=== PATIENT | female | born 1960 | race Caucasian/White ===

== ENCOUNTER 2017-06-13 08:58 | Inpatient (IN) | payer MEDICAID ==
[~2017-06-13] VITALS: Ht 160 cm; Wt 47.2 kg
[2017-06-13 09:30] LABS: BASOPHIL % 0.3 % (0-2); PLATELET COUNT 274 x10^3mcL (130-400); RED CELL DISTRIBUTION WIDTH 13.2 % (11.5-14.5)
[2017-06-13 09:41] LABS: CALCIUM 9.2 mg/dL (8.5-10.1); CARBON DIOXIDE 34.4 mmol/L (21-32); CHLORIDE SERUM 100 mmol/L (98-107); CREATININE SERUM 0.8 mg/dL (0.6-1.0); GFR1 > 60 mL/min; GLUCOSE SERUM 97 mg/dL (74-106); POTASSIUM SERUM 3.3 mmol/L (3.5-5.1); SODIUM SERUM 139 mmol/L (136-145)
[2017-06-13 09:47] LABS: ALBUMIN 3.4 g/dL (3.4-5.0); ALKALINE PHOSPHATASE 97 U/L (46-116); ALT/SGPT 19 U/L (14-59); AST/SGOT 21 U/L (15-37); BILIRUBIN TOTAL 0.27 mg/dL (0.20-1.00); LIPASE 165 IU/L (73-393); TOTAL PROTEIN, SERUM 7.4 g/dL (6.4-8.2)
[2017-06-13 11:06] LABS: T3 TOTAL 1.12 ng/mL
[2017-06-13 11:19] LABS: MAGNESIUM 1.8 mg/dL (1.8-2.4); PHOSPHOROUS 3.6 mg/dL (2.5-4.9)
[2017-06-13 11:23] LABS: CHOLESTEROL/HDL RATIO 2.6
[2017-06-13 11:29] VITALS: BP 125/87
[2017-06-13 11:29] LABS: FREE T4 1.36 ng/dL (0.76-1.46); FREE THYROXINE INDEX 4.5 ug/dL (1.4-4.5); T4(THYROXINE) 13.3 ug/dL (4.7-13.3)
[2017-06-13 14:45] VITALS: BP 124/77
[2017-06-13 14:54] VITALS: BP 128/87
[2017-06-13 18:14] VITALS: BP 125/70
[2017-06-13 21:31] VITALS: BP 142/78
[2017-06-14 06:56] LABS: BASOPHIL % 0.6 % (0-2); PLATELET COUNT 245 x10^3mcL (130-400); RED CELL DISTRIBUTION WIDTH 13.3 % (11.5-14.5)
[2017-06-14 06:57] LABS: CALCIUM 8.4 mg/dL (8.5-10.1); CARBON DIOXIDE 31.7 mmol/L (21-32); CHLORIDE SERUM 103 mmol/L (98-107); CREATININE SERUM 0.8 mg/dL (0.6-1.0); GFR1 > 60 mL/min; GLUCOSE SERUM 72 mg/dL (74-106); PHOSPHOROUS 3.4 mg/dL (2.5-4.9); POTASSIUM SERUM 3.2 mmol/L (3.5-5.1); SODIUM SERUM 140 mmol/L (136-145)
[2017-06-14 07:01] VITALS: BP 124/68
[2017-06-14 11:42] VITALS: Ht 160 cm; Wt 47.2 kg
[2017-06-14 14:30] VITALS: BP 101/62
[2017-06-14 18:01] VITALS: BP 94/54
[2017-06-14 20:52] VITALS: BP 95/56
[2017-06-15 01:37] LABS: microscopic required? YES; urine erythrocyte NEGATIVE (NEGATIVE)
[2017-06-15 01:53] LABS: AMPHETAMINE QUAL UR POSITIVE (NEG <=1000)
[2017-06-15 05:47] VITALS: BP 145/88
[2017-06-15 06:40] LABS: PLATELET COUNT 265 x10^3mcL (130-400); RED CELL DISTRIBUTION WIDTH 13.2 % (11.5-14.5)
[2017-06-15 06:58] LABS: BASOPHIL % 0 % (0-2); CALCIUM 8.4 mg/dL (8.5-10.1); CARBON DIOXIDE 32.8 mmol/L (21-32); CHLORIDE SERUM 103 mmol/L (98-107); CREATININE SERUM 0.8 mg/dL (0.6-1.0); GFR1 > 60 mL/min; GLUCOSE SERUM 134 mg/dL (74-106); POTASSIUM SERUM 3.8 mmol/L (3.5-5.1); SODIUM SERUM 139 mmol/L (136-145)
[2017-06-15 08:30] VITALS: BP 119/67
[2017-06-15 15:38] VITALS: BP 108/67
[2017-06-15 18:08] VITALS: BP 104/65
[2017-06-15 21:58] VITALS: BP 94/50
[2017-06-16 06:19] VITALS: BP 111/68
[2017-06-16 07:05] LABS: BASOPHIL % 0.3 % (0-2); PLATELET COUNT 236 x10^3mcL (130-400); RED CELL DISTRIBUTION WIDTH 13.4 % (11.5-14.5)
[2017-06-16 07:11] LABS: CALCIUM 7.7 mg/dL (8.5-10.1); CARBON DIOXIDE 25.1 mmol/L (21-32); CHLORIDE SERUM 106 mmol/L (98-107); CREATININE SERUM 0.6 mg/dL (0.6-1.0); GFR1 > 60 mL/min; GLUCOSE SERUM 104 mg/dL (74-106); POTASSIUM SERUM 4.1 mmol/L (3.5-5.1); SODIUM SERUM 137 mmol/L (136-145)
[2017-06-16 09:07] VITALS: BP 103/68
[2017-06-16 15:45] VITALS: BP 102/72
[2017-06-16 17:58] VITALS: BP 115/60
[2017-06-16 19:30] VITALS: BP 102/65
[2017-06-17 05:45] VITALS: BP 111/70
[2017-06-17 08:55] VITALS: BP 105/66
[2017-06-17 10:22] LABS: BASOPHIL % 0.4 % (0-2); PLATELET COUNT 234 x10^3mcL (130-400); RED CELL DISTRIBUTION WIDTH 13.3 % (11.5-14.5)
[2017-06-17 10:37] LABS: CALCIUM 7.9 mg/dL (8.5-10.1); CHLORIDE SERUM 106 mmol/L (98-107); CREATININE SERUM 0.7 mg/dL (0.6-1.0); GFR1 > 60 mL/min; GLUCOSE SERUM 125 mg/dL (74-106); POTASSIUM SERUM 3.8 mmol/L (3.5-5.1); SODIUM SERUM 137 mmol/L (136-145)
[2017-06-17] MEDS ORDERED: GOOD NEIGHBOR P20 M2 PO (15:01)
== END 2017-06-17 13:28 | disposition left against medical advice (07) | DRG 240 ==
LOC: ED 08:58 → DU 10:14
PROVIDERS: Emergency Medicine; Internal Medicine Gastroenterology; Student in an Organized Health Care Education/Training Program; ADMIT Family Medicine
PROC: 0DB68ZX Excision of Stomach, Via Natural or Artificial Opening Endoscopic, Diagnostic (ICD-10-PCS; principal; 2017-06-15 10:00)
DX: C16.3 Malignant neoplasm of pyloric antrum (principal); N17.0 Acute kidney failure with tubular necrosis; K31.1 Adult hypertrophic pyloric stenosis; E83.51 Hypocalcemia; I36.1 Nonrheumatic tricuspid (valve) insufficiency; K25.9 Gastric ulcer, unspecified as acute or chronic, without hemorrhage or perforation; B96.81 Helicobacter pylori [H. pylori] as the cause of diseases classified elsewhere; F10.10 Alcohol abuse, uncomplicated; F15.10 Other stimulant abuse, uncomplicated; D50.9 Iron deficiency anemia, unspecified; I34.0 Nonrheumatic mitral (valve) insufficiency; E87.6 Hypokalemia; F17.210 Nicotine dependence, cigarettes, uncomplicated; Z68.1 Body mass index [BMI] 19.9 or less, adult
CPT/HCPCS: 36600; 43235; 82962; 83880; 84439; 99406; C9113; G0480; J1200; J1610; J1885; J2250; J2310; J2405; J2550; J2765; J3010; J3480; J3490; J7030; J7131; J7620; Q0092; Q9966; Q9967

== ENCOUNTER 2017-07-30 15:12 | Inpatient (IN) | payer MEDICAID ==
[~2017-07-30] VITALS: Ht 160 cm; Wt 47.6 kg
[~2017-07-30 15:12] MED LIST: GOOD NEIGHBOR P20 M2 PO
[2017-07-30 16:00] LABS: BASOPHIL % 1.1 % (0-2); PLATELET COUNT 342 x10^3mcL (130-400); RED CELL DISTRIBUTION WIDTH 13.5 % (11.5-14.5)
[2017-07-30 16:18] LABS: POTASSIUM SERUM 3.5 mmol/L (3.5-5.1)
[2017-07-30 16:26] LABS: CREATININE SERUM 0.7 mg/dL (0.6-1.0); GFR1 > 60 mL/min
[2017-07-30 16:27] LABS: CALCIUM 8.8 mg/dL (8.5-10.1); CARBON DIOXIDE 30.7 mmol/L (21-32); CHLORIDE SERUM 99 mmol/L (98-107); GLUCOSE SERUM 119 mg/dL (74-106); SODIUM SERUM 140 mmol/L (136-145)
[2017-07-30 16:30] LABS: AST/SGOT 39 U/L (15-37); BILIRUBIN TOTAL 0.3 mg/dL (0.20-1.00)
[2017-07-30 16:32] LABS: ALBUMIN 3.6 g/dL (3.4-5.0); ALKALINE PHOSPHATASE 109 U/L (46-116); ALT/SGPT 51 U/L (14-59); LIPASE 1043 IU/L (73-393); TOTAL PROTEIN, SERUM 7.9 g/dL (6.4-8.2)
[2017-07-30 18:00] LABS: PHOSPHOROUS 3.7 mg/dL (2.5-4.9)
[2017-07-30 18:02] LABS: CHOLESTEROL/HDL RATIO 2.4
[2017-07-30 18:07] LABS: T3 TOTAL 1.25 ng/mL
[2017-07-30 18:10] VITALS: BP 150/96
[2017-07-30 18:10] LABS: FREE T4 1.17 ng/dL (0.76-1.46); FREE THYROXINE INDEX 3.7 ug/dL (1.4-4.5); T4(THYROXINE) 10.6 ug/dL (4.7-13.3)
[2017-07-30 18:13] VITALS: Ht 160 cm; Wt 47.6 kg
[2017-07-30 21:23] VITALS: BP 156/85
[2017-07-31 05:40] VITALS: BP 144/82
[2017-07-31 06:39] LABS: CALCIUM 8.3 mg/dL (8.5-10.1); CARBON DIOXIDE 25.9 mmol/L (21-32); CHLORIDE SERUM 101 mmol/L (98-107); CREATININE SERUM 0.7 mg/dL (0.6-1.0); GFR1 > 60 mL/min; GLUCOSE SERUM 99 mg/dL (74-106); POTASSIUM SERUM 3.7 mmol/L (3.5-5.1); SODIUM SERUM 136 mmol/L (136-145)
[2017-07-31 06:41] LABS: BASOPHIL % 0.5 % (0-2); PLATELET COUNT 321 x10^3mcL (130-400); RED CELL DISTRIBUTION WIDTH 13.5 % (11.5-14.5)
[2017-07-31 10:41] VITALS: BP 97/76
[2017-07-31 14:20] VITALS: BP 127/67
[2017-07-31 17:10] VITALS: BP 126/72
[2017-07-31 21:21] VITALS: BP 138/82
[2017-07-31 23:54] LABS: UA SPECIFIC GRAVITY 1.015 (1.005-1.035); microscopic required? YES; urine erythrocyte TRACE (NEGATIVE)
[2017-08-01 00:17] LABS: AMPHETAMINE QUAL UR NONE DETECTED (NEG <=1000)
[2017-08-01 05:59] VITALS: BP 118/72
[2017-08-01 10:14] VITALS: BP 112/75
[2017-08-01 14:09] VITALS: BP 112/75
[2017-08-01] MEDS ORDERED: METOPROLOL TART25 M1 PO (14:09)
[2017-08-01] MEDS ORDERED: APAP/HYDROCODON1 T15 PO (14:09)
[2017-08-01] MEDS ORDERED: ZES5 PO (14:09)
[2017-08-01] MEDS ORDERED: GOOD NEIGHBOR P20 M2 PO (14:09)
[2017-08-01] MEDS ORDERED: AMO500 PO (14:09)
[2017-08-01] MEDS ORDERED: BIA500 PO (14:09)
== END 2017-08-01 15:11 | disposition home or self-care (01) | DRG 282 ==
LOC: ED 15:12 → MU 16:44 → DU 16:44 → MU 08-01 10:02
PROVIDERS: Emergency Medicine; Family Medicine
DX: K85.90 Acute pancreatitis without necrosis or infection, unspecified (principal); I42.2 Other hypertrophic cardiomyopathy; B96.81 Helicobacter pylori [H. pylori] as the cause of diseases classified elsewhere; F17.210 Nicotine dependence, cigarettes, uncomplicated; D13.1 Benign neoplasm of stomach; Z68.1 Body mass index [BMI] 19.9 or less, adult
CPT/HCPCS: 83880; 84439; G0480; J2270; J2405; J3010; J7030

== ENCOUNTER 2017-08-07 10:36 | Emergency (ER) | payer MEDICAID ==
[~2017-08-07] VITALS: Ht 157.5 cm; Wt 47.2 kg
[~2017-08-07 10:36] MED LIST changes: +AMO500 PO; +APAP/HYDROCODON1 T15 PO; +BIA500 PO; +METOPROLOL TART25 M1 PO; +ZES5 PO
[2017-08-07 10:44] VITALS: Ht 157.5 cm; Wt 47.2 kg
[2017-08-07 13:34] LABS: AMPHETAMINE QUAL UR NONE DETECTED (NEG <=1000)
[2017-08-07 14:03] LABS: AMYLASE 78 U/L (25-115); LIPASE 127 IU/L (73-393)
[2017-08-07 14:52] VITALS: BP 120/69
== END 2017-08-07 14:52 | disposition home or self-care (01) ==
LOC: ED
PROVIDERS: Emergency Medicine
DX: C16.9 Malignant neoplasm of stomach, unspecified (principal); R64 Cachexia; F17.210 Nicotine dependence, cigarettes, uncomplicated; Z90.49 Acquired absence of other specified parts of digestive tract
CPT/HCPCS: G0480